=== PATIENT | female | born 1945 | race Caucasian/White ===

== ENCOUNTER 2016-10-20 11:15 | Emergency (ER) | payer OTHER ==
[2016-10-20] MEDS ORDERED: SODIUM CHLORIDE 0.9% 1,000 ML ONE ×2 (12:34→14:06)
[2016-10-20 12:50] LABS: ABSOLUTE NEUTROPHIL COUNT 13.2 K/mm3 (1.8-7.7); BASO % 0.1 % (0.2-1.0); EOS % 0.2 % (0.9-2.9); HEMATOCRIT 36.2 % (37.0-47.0); HEMOGLOBIN 11.3 gm/l (12.0-16.0); IMM NEUT # 0.1 K/mm3 (0-0.2); IMM NEUT% 0.3 % (0-1); LYMPH # 0.9 (1.0-4.8); LYMPH % 5.8 % (15-45); MEAN CELL VOLUME 97.3 fl (81.0-99.0); MEAN CORPUSCULAR HEMOGLOBIN 30.4 pg (27.0-31.0); MEAN CORPUSCULAR HGB CONC 31.2 g/dl (33.0-37.0); MEAN PLATELET VOLUME 10.7 fl (7.4-10.4); MONO # 1.9 (0.0-0.8); MONO % 11.9 % (4-12); NEUT % 81.7 % (43-75); PLATELET COUNT 264 K/mm3 (130-400); RED CELL DISTRIBUTION WIDTH 15.1 % (11.5-14.5)
[2016-10-20 13:09] LABS: ALB/GLOB RATIO 1.1 (>1.0); ALBUMIN 3.5 gm/dL (3.5-5.7); CALCIUM 9.7 mg/dL (8.6-10.3)
[2016-10-20 13:13] LABS: SPECIFIC GRAVITY 1.015 (1.001-1.030); URINE APPEARANCE HAZY; URINE BILIRUBIN NEGATIVE (NEGATIVE); URINE BLOOD TRACE (NEGATIVE); URINE COLOR YELLOW; URINE GLUCOSE (UA) NEGATIVE (NEGATIVE); URINE LEUKOCYTE ESTERASE 2+ (NEGATIVE); URINE NITRITE POSITIVE (NEGATIVE); URINE PROTEIN TRACE (NEGATIVE); URINE UROBILINOGEN NORMAL (0-1 mg/dl)
[2016-10-20 13:36] LABS: URINE BACTERIA 2+; URINE RBC 0-1 /hpf; URINE WBC 15-20 /hpf
[2016-10-20] MEDS ORDERED: CEFTRIAXONE 1 GRAM DUPLEX 50 ML IV ONE (13:44)
[2016-10-20] MEDS ORDERED: ACETAMINOPHEN 500 MG TABLET ONE (14:25)
== END 2016-10-20 14:54 | disposition home or self-care (01) ==
LOC: ED 11:15
DX: R10.84 Generalized abdominal pain (principal); R11.0 Nausea
CPT/HCPCS: 83605; 85025; 87086; 80053; 87186; 81001; 80164; 99284; 96365; 51701; 99283; A9270; J7030 ×2; J0696